=== PATIENT | female | born 1995 | race Caucasian/White ===

== ENCOUNTER → 2025-03-29 16:05 | Outpatient (CLI) | payer OTHER, SELFPAY ==
[2025-03-29 18:30] LABS: Urine Chlamydia NOT DETECTED; Urine N gonorrhoeae NOT DETECTED
== END ==
PROVIDERS: Visit Provider Nurse Practitioner Family
DX: N94.9 Unspecified condition associated with female genital organs and menstrual cycle (principal); R30.0 Dysuria
CPT/HCPCS: 87086; 87210; 87491; 87591

== ENCOUNTER → 2025-04-29 11:12 | Outpatient (CLI) | payer OTHER, SELFPAY ==
[2025-04-30 11:36] LABS: Trichomoas vaginalis Negative (Negative)
== END ==
PROVIDERS: Visit Provider Obstetrics & Gynecology
DX: R30.0 Dysuria (principal); N73.9 Female pelvic inflammatory disease, unspecified
CPT/HCPCS: 81514; 87086

== ENCOUNTER → 2025-05-13 10:27 | Outpatient (CLI) | payer OTHER, SELFPAY ==
[2025-05-13 10:53] LABS: Add Manual Diff / Slide Review NO; Hematocrit 37.5 % (36-46); Hemoglobin 13.0 g/dL (12.0-16.0); Lymphocytes Absolute Auto 1400 /uL (1100-4500); Mean Corpuscular HGB Conc 34.7 % (30-36); Mean Corpuscular Hemoglobin 30.8 PG (26-34); Mean Corpuscular Volume 88.8 fL (80-100); Platelet Count 296 X10^3/uL (150-400)
[2025-05-13 12:39] LABS: HCG Quantitative /Beta subunit < 2.39 mIU/mL; HEMOLYSIS 20 (0-50)
[2025-05-13 12:54] LABS: TSH w/ Reflex to FT4 0.49 uIU/mL (0.47-4.68)
[2025-05-13 12:57] LABS: Ferritin 40 ng/mL (6-137)
[2025-05-13 13:24] LABS: Alanine Aminotransferase 21 IU/L (<35); Albumin 4.5 g/dL (3.5-5.0); Albumin Globulin Ratio 1.5 (1.0-2.8); Alkaline Phosphatase 39 U/L (38-126); Blood Urea Nitrogen 8 mg/dL (7-17); Calcium 9.6 mg/dL (8.4-10.2); Carbon Dioxide 19 mmol/L (22-32); Chloride 108 mmol/L (98-107); Estimated Glomerular Filt Rate > 60 mL/min (>60); Globulin 3.0 g/dL (1.7-4.1); Glucose 104 mg/dL (70-99); Potassium 4.3 mmol/L (3.4-5.1); Sodium 138 mmol/L (137-145); Total Protein 7.5 g/dL (6.3-8.2)
== END ==
PROVIDERS: Referring Provider Obstetrics & Gynecology; Visit Provider Obstetrics & Gynecology
DX: N92.0 Excessive and frequent menstruation with regular cycle (principal)
CPT/HCPCS: 36415; 80053; 82728; 84146; 84443; 84702; 85025

== ENCOUNTER → 2025-05-19 16:20 | Outpatient (CLI) | payer OTHER, SELFPAY ==
--- NOTE | 2025-05-19 16:22 | DI.US.S_ITS ---
PROCEDURE: US PELVIC COMPLETE INDICATIONS: menorrhagia TECHNIQUE: Real-time scanning was performed of the pelvic organs, with image documentation. Additional endovaginal scanning was necessary due to incomplete visualization of the adnexal and endometrial structures by transabdominal scanning. COMPARISON: None. FINDINGS: Uterus: 8.2 x 6.2 x 4 cm. Hyperemic appearing myometrium. Endometrium measures 15 mm, borderline thickened. No discrete lesion is seen by ultrasound. Small cystic change measuring 0.5 cm in the left subendometrial region. Ovaries: Right ovary measures 12 mL. Left ovary measures 8 mL. Greater than 12 follicles are seen bilaterally. Other: There is mild pelvic free fluid, likely physiologic IMPRESSION: Hyperemic myometrium and mild subendometrial cystic change. This is nonspecific, sometimes associated with adenomyosis. The endometrium is borderline thickened at 15 mm. Consider 1-2 month follow-up ultrasound to ensure temporal thinning. No discrete lesion seen by ultrasound today. Mildly enlarged right ovary with greater than 12 follicles. This is nonspecific, sometimes associated with polycystic ovarian morphology correlating with laboratory and clinical context. Dictated by: Madhav Mary M.D. on 05/20/2025 at 7:32 Approved by: Madhav Mary M.D. on 05/20/2025 at 7:34
== END ==
LOC: US 16:22
PROVIDERS: Referring Provider Obstetrics & Gynecology; Visit Provider Obstetrics & Gynecology
DX: N92.0 Excessive and frequent menstruation with regular cycle (principal); N83.8 Other noninflammatory disorders of ovary, fallopian tube and broad ligament
CPT/HCPCS: 76830; 76856